=== PATIENT | female | born 1940 | race Caucasian/White ===

== ENCOUNTER → 2023-07-15 12:44 | Outpatient (REF) | payer OTHER, SELFPAY | LOC: WDC 12:44 | PROVIDERS: ATTENDING PHYSICIAN Obstetrics & Gynecology; FAMILY PHYSICIAN Family Medicine | DX: Z12.31 Encounter for screening mammogram for malignant neoplasm of breast (principal) | CPT/HCPCS: 77063; 77067 ==

== ENCOUNTER → 2023-07-27 14:52 | Outpatient (REF) | payer OTHER, SELFPAY | LOC: WDC 14:52 | PROVIDERS: ATTENDING PHYSICIAN Obstetrics & Gynecology; FAMILY PHYSICIAN Family Medicine | DX: R92.8 Other abnormal and inconclusive findings on diagnostic imaging of breast (principal) | CPT/HCPCS: 76642 ==

== ENCOUNTER → 2023-08-01 07:55 | Outpatient (REF) | payer OTHER, SELFPAY ==
--- NOTE | 2023-08-01 14:52 | OID.BR.INTR ---
YGD Breast Navigator - Initial
- -
Date of Contact: 08/01/23
Met with patient. Patient given written information on navigator services available at [facility]. Will follow up as needed per protocol.
== END ==
LOC: WDC 07:55
PROVIDERS: ATTENDING PHYSICIAN Obstetrics & Gynecology
DX: N63.21 Unspecified lump in the left breast, upper outer quadrant (principal)
CPT/HCPCS: 88305; 19083; 19084; 77065; 88341; 88342; 88360; A4648

== ENCOUNTER → 2023-08-18 11:31 | Outpatient (REF) | payer OTHER, SELFPAY | LOC: WDC 11:31 | PROVIDERS: ATTENDING PHYSICIAN Surgery | DX: C50.412 Malignant neoplasm of upper-outer quadrant of left female breast (principal) | CPT/HCPCS: 19285; 77065; A4648 ==

== ENCOUNTER 2023-08-19 05:58 | Day surgery (SDC) | payer OTHER, SELFPAY ==
[2023-08-10 09:05] VITALS: BMI 29.1
[2023-08-10 10:23] LABS: Hematocrit 41.2 % (37.0-47.0); Hemoglobin 13.5 g/dL (12.0-16.0); Mean Corp Hgb Conc. 32.8 g/dL (33.0-37.0); Mean Corpuscular Hgb 31.5 pg (27.0-31.0); Platelet Count 200 10^3/uL (130-400); Red Blood Cell Count 4.29 10^6/uL (4.20-5.40); Red Cell Dist. Width 13.2 % (11.5-14.5); White Blood Cell Count 6.9 10^3/uL (4.8-10.8)
--- NOTE | 2023-08-10 10:37 | PTCARENOTE ---
Preop EKG from 08/10/23 with non-specific T wave abnormality. See prior EKG scanned from 11/22/22 showing history fo non-specific ST/T changes.
[2023-08-10 11:19] LABS: ALT (SGPT) 19 U/L (0-35); AST (SGOT) 24 U/L (14-36); Albumin 4.1 g/dl (3.5-5.0); Alkaline Phosphatase 68 U/L (38-126); Blood Urea Nitrogen 22 mg/dl (7-17); Carbon Dioxide 27 mmol/L (22-30); Chloride 105 mmol/L (98-107); Estimated Creatinine Clearance 74 ml/min; Glucose 98 mg/dl (70-99); Potassium 4.7 mmol/L (3.5-5.1); Sodium 137 mmol/L (135-145); Total Bilirubin 0.4 mg/dl (0.2-1.3); Total Protein 7.1 g/dl (6.3-8.2); eGFR > 60.00
[2023-08-10 11:24] LABS: Prealbumin (Transthyretin) 27.5 mg/dl (17.6-36.0)
[2023-08-10 11:36] LABS: Vitamin D, 25-OH*** 35.3 ng/mL (30-80)
[2023-08-19 08:23] VITALS: BMI 29.1
[2023-08-19 08:25] VITALS: BP 123/61
[2023-08-19] MEDS: NORMOSOL-R 1000 IV (08:43)
[2023-08-19] MEDS: TYLENOL 1000 MG PO (08:43)
[2023-08-19 11:00] VITALS: BP 156/124
[2023-08-19 11:05] VITALS: BP 119/67
[2023-08-19 11:15] VITALS: BP 124/62
[2023-08-19 11:30] VITALS: BP 128/65
[2023-08-19 11:45] VITALS: BP 119/68
== END 2023-08-19 12:08 | disposition home or self-care (01) ==
LOC: SDS 05:58
PROVIDERS: ATTENDING PHYSICIAN Surgery; FAMILY PHYSICIAN Family Medicine
DX: C50.912 Malignant neoplasm of unspecified site of left female breast (principal); Z17.0 Estrogen receptor positive status [ER+]
CPT/HCPCS: 19301; 88305; 88307; 36415; 76098; 80053; 82306; 84134; 85027; 93005; A4648; L8000

== ENCOUNTER → 2024-07-20 12:49 | Outpatient (REF) | payer OTHER, SELFPAY | LOC: WDC 12:49 | PROVIDERS: ATTENDING PHYSICIAN Surgery; FAMILY PHYSICIAN Family Medicine | DX: Z12.31 Encounter for screening mammogram for malignant neoplasm of breast (principal) | CPT/HCPCS: 77063; 77067 ==

== ENCOUNTER 2025-03-20 23:50 | Inpatient (IN) | payer OTHER, SELFPAY ==
[2025-03-20 16:04] VITALS: BP 139/72
[2025-03-20 16:41] LABS: Hematocrit 39.4 % (37.0-47.0); Hemoglobin 13.3 g/dL (12.0-16.0); Mean Corp Hgb Conc. 33.8 g/dL (33.0-37.0); Mean Corpuscular Volume 90.0 fL (81.0-99.0); Nucleated Red Blood Cells % 0 %; Platelet Count 204 10^3/uL (130-400); Red Cell Dist. Width 12.7 % (11.5-14.5)
[2025-03-20 17:01] LABS: Troponin I 0.018 ng/ml
[2025-03-20 17:03] LABS: ALT (SGPT) 712 U/L (0-35); AST (SGOT) 882 U/L (14-36); Albumin 4.1 g/dl (3.5-5.0); Alkaline Phosphatase 188 U/L (38-126); Blood Urea Nitrogen 12 mg/dl (7-17); Calcium 8.7 mg/dl (8.4-10.2); Carbon Dioxide 22 mmol/L (22-30); Chloride 105 mmol/L (98-107); Glucose 130 mg/dl (70-99); Lipase 739 U/L (23-300); Potassium 4.1 mmol/L (3.5-5.1); Sodium 136 mmol/L (135-145); Total Protein 7.0 g/dl (6.3-8.2); eGFR > 60.00
--- NOTE | 2025-03-20 19:47 | ED.GENMED ---
History of Present Illness
General
Chief Complaint: Abdominal Pain
Time Seen by Provider: 03/20/25 19:24
Nursing documentation reviewed up to this point in time: agreed with
History of Present Illness
History of Present Illness:
84-year-old female presents the ER with her daughter for evaluation of continued upper abdominal discomfort radiating into her chest over the past 7 to 10 days. Patient had an ultrasound a few years ago which did reveal gallstones. She never had
any seizure with regards to this. She denies any fevers or chills. She has had persistent nausea with poor p.o. intake. Daughter reports that she had an episode of severe pain today which caused her to nearly faint and to fall to her knees. She
has been using Tylenol for discomfort without any improvement. Daughter states that they were advised to avoid ibuprofen or NSAIDs by a previous physician. Patient reports persistent discomfort at time of evaluation. Patient was scheduled to see
surgery as an outpatient after being evaluated by primary care physician on Tuesday-pain was more severe today prompting visit to the ER
Past History
Past History
ED Past Surgical History: Gynecological (Uterine polyp removed) and Orthopedic (Left carpal tunnel)
Social History
Tobacco: Former smoker
Alcohol: Daily (wine 2-9)
Personal:
Living: with family
Review of Systems
Review of Systems
Allergies reviewed?: Yes
Phy Exam
Physical Exam
Physical Exam:
Patient is awake, alert, appears in no acute distress, very hard of hearing, head is NCAT, PERRL, EOMI mucous membranes tacky, conjunctiva pink, sclera anicteric heart regular rate and rhythm without murmurs or ectopy, lungs are clear to
auscultation without wheezes rales or rhonchi, no JVD, abdomen is soft, obese, mild tenderness on palpation epigastrium without guarding or rebound,, extremities without edema, GCS is 15
Course
Orders/Labs/Results
Orders:
Orders
03/20/25 16:07
Electrocardiogram (*1) Urgent
Reason for Study: Abdominal Pain
EKG- Treatment ONCE
03/20/25 16:08
Electrocardiogram (*1) Urgent
Reason for Study: Chest Pain
03/20/25 16:25
Complete Blood Count/With Diff Urgent
Comprehensive Metabolic Panel Urgent
Lipase Urgent
Troponin I Urgent
03/20/25 19:25
US Abdomen Complete/Upper Urgent
Comment:
Reason For Exam: elevated LFts
03/20/25 19:46
0.9% Sodium Chloride 1000 ml [Nss] 1,000 ml IV BOLUS
Morphine Sulfate 4 mg IV NOW STA
Ondansetron Injectable [Zofran] 4 mg IV NOW STA
03/20/25 22:14
Consult Surgery [SURGICAL CONSULT] Urgent
Consulting Provider: Fernando Mendes
Was physician already notified: Yes
Reason for consult: biliary colic
03/20/25 22:19
Consult Gastroenterology [GASTROINTESTINAL CONSULT] Urgent
Consulting Provider: Will Dougherty
Was physician already notified: Yes
Reason for consult: choledocholithiasis
03/20/25 22:26
Zosyn 3.375 grams IVPB NOW Piperacillin/Tazo 3.375 Gram [Zosyn] 3.375 gram in 50 ml IV NOW
Abnormal Lab Results
03/20/25
16:25
Absolute Neuts (auto) 7.6 H 10^3/uL
(1.4-6.5)
Absolute Lymphs (auto) 0.7 L 10^3/uL
(1.2-3.4)
Neutrophils % 85.7 H %
(42.2-75.2)
Lymphocytes % 8.1 L %
(20.5-51.1)
Glucose 130 H mg/dl
(70-99)
Total Bilirubin 2.3 H mg/dl
(0.2-1.3)
AST 882 H* U/L
(14-36)
ALT 712 H* U/L
(0-35)
Alkaline Phosphatase 188 H U/L
(38-126)
Lipase 739 H U/L
(23-300)
03/20/25 16:25
03/20/25 16:25
Significant elevation in LFTs compared to prior values from 08/10/2023. Bilirubin is elevated at 2.3. Alk phos also elevated at 188. Troponin without evidence for acs
Vital Signs
Initial and Last Documented VS:
Initial Vital Signs
Temp Pulse Resp BP Pulse Ox
98 F 81 16 139/72 98
03/20/25 16:04 03/20/25 16:04 03/20/25 16:04 03/20/25 16:04 03/20/25 16:04
Last Documented Vital Signs
Temp Pulse Resp BP Pulse Ox
99.7 F 79 17 138/66 93
03/20/25 21:35 03/20/25 21:30 03/20/25 21:15 03/20/25 21:15 03/20/25 21:30
MDM/Problems Addressed
Differential Diagnosis Includes:
Differential diagnosis to consider but not limited to biliary colic, choledocholithiasis, pancreatitis along with other etiologies considered
Chronic conditions affecting care:
Advanced age, known gallstones, GERD, high cholesterol, hypertension
*Radiology
Radiology exam reviewed: radiology read reviewed (Gallstones with ductal dilatation concerning for choledocholithiasis)
*Pulse Oximetry
SaO2: 96
Oxygen Mode of Delivery: Room air
Patient hypoxic: no
*EKG
Interpreted by ED Provider?: Yes (I independently viewed and interpreted twelve-lead EKG showing normal sinus rhythm, rate 82, leftward axis, no ST elevation, this is a nonspecific EKG without evidence for acute ischemia, no change compared to prior
from 08/10/2023)
*[employer]ing Guard Interpretation
Rate: normal (I independently viewed and interpreted rhythm strip showing normal sinus rhythm, no ectopy)
*Critical Care Note
Total Time (30-74mins, 75-104mins- exclusive of procedures): Not Applicable
Update Note
Update Note:
I discussed with patient and daughter present at bedside clinical concern for choledocholithiasis given significant LFT elevation. Will obtain ultrasound to confirm diagnosis. I discussed with them need for admission for GI evaluation and likely
cholecystectomy. They agree with plan at current. IV morphine, Zofran and IV fluids are ordered.
2220: Once ultrasound result available, I reviewed this information with daughter. I also reached out to on-call surgeon, Dr. Mendes, and on-call agriculture research director, Dr. Dougherty, to apprise him of patient situation. They are in agreement with plan
for for hospitalist admission. IV antibiotics ordered. I reviewed full patient presentation with the hospitalist who accepts patient for admission for further treatment of acute choledocholithiasis with LFT elevation
ED Attending Note
-
Portions of this chart may have been created with voice recognition software.� Occasional wrong word or��sound alike� substitutions may have occurred due to the inherent limitations of voice recognition software.
Discharge Plan
Departure
Patient Disposition: Admit
Date of Disposition: 03/20/25
Time of Disposition: 22:25
Presentation/result/management discussed w/ accepting MD/DO: Hospitalist
Discharge Problem:
Choledocholithiasis, Elevated LFTs
Prescriptions:
No Action
amlodipine 5 mg Tablet
5 mg PO DAILY
ergocalciferol (vitamin D2) 1,250 mcg (50,000 unit) Capsule
1,250 mcg PO Q2W
red yeast rice 600 mg Tablet
600 mg PO DAILY
sertraline 100 mg Tablet
100 mg PO DAILY
calcium carbonate [Tums] 200 mg calcium (500 mg) Tablet,Chewable
200 mg PO BIDPRN PRN (Reason: gerd)
omeprazole 20 mg Tablet,Delayed Release (Dr/Ec)
20 mg PO DAILY
Referrals:
UNKNOWN - PT DOES,NOT KNOW [Family Provider]
Interventions
Interventions:
*General Assessment Last Done: 03/20/25 19:07
*Neglect/Abuse Screening Last Done: 03/20/25 16:04
*ED COVID-19 Vaccine History Last Done: 03/20/25 19:07
*ED Influenza Vaccine History Last Done: 03/20/25 19:07
[facility] Fall Risk Assessment Tool Last Done: 03/20/25 19:06
*Risk Screen - Suicide (C-SSRS) Last Done: 03/20/25 16:04
KQ-Hljjqr-Bzovcstcsu Assessment Last Done: 03/20/25 19:08
Discharge Date and Time
Print Language: GREEK
[2025-03-20] MEDS: NSS 1000 IV (19:58)
[2025-03-20] MEDS: MORPHINE SULFATE 4 MG IV (19:59)
[2025-03-20] MEDS: ZOFRAN 4 MG IV (19:59)
[2025-03-20 20:00] VITALS: BP 142/69
[2025-03-20 21:15] VITALS: BP 138/66
[2025-03-20 22:00] VITALS: BP 134/60
--- NOTE | 2025-03-20 22:24 | HPS.HSE ---
Family Physician
-
Family Physician: NOT KNOW UNKNOWN - PT DOES
Chief Complaint
-
abd pain nausea
History of Present Illness
84-year-old female from home with her daughter for complaints of upper abdominal discomfort radiating into her chest over the past 7 to 10 days.
She had an ultrasound a few years ago which did reveal gallstones. She reports nausea with decreased appetite. She reports her pain became worse today making her feel like she wanted to faint. She denies fevers, chills, chest pain, sob, cough,
diarrhea. She has been using Tylenol for discomfort without any improvement. She has PMH of Uterine polyp removed, former smoker , former alcohol abuse, Htn, Gerd, anxiety ,Left breast carcinoma
s/p lumpectomy 08/19/2023 Dr victoria, Chronic ambulatory dysfunction uses rollator at baseline
Medical History
Past Medical History
Past Medical History: Reports Other
Additional Past Medical History:
Former smoker
Former alcohol abuse stopped 2023
Htn
Gerd
Anxiety
Left breast carcinoma s/p lumectomy 08/19/2023 Dr victoria
Chronic ambulatory dysfunction uses rollator at baseline
[place]
Past Surgical History: Reports Other
Additional Past Surgical History:
Left breast carcinoma s/p lumectomy 08/19/2023 Dr victoria
Uterine polyp removed
Social History
Tobacco: Former Smoker
Alcohol: Former (used to drink 2-4 glasses wine day stopped 2023 )
Personal: Single
Living: With Family
Employment: Retired
Family History
Family History: Not pertinent
Allergies / Home Medications
Allergies reflects when Allergies were last updated in [employer].
Home Medications with original date entered in [employer]
Allergy/Medication List:
Allergies
Allergy/AdvReac Type Severity Reaction Status Date / Time
No Known Allergies Allergy Verified 03/20/25 16:04
Home Medications
amlodipine 5 mg tablet 5 mg PO DAILY 11/25/22
ergocalciferol (vitamin D2) 1,250 mcg (50,000 unit) capsule 1,250 mcg PO Q2W Supplement 11/25/22
red yeast rice 600 mg tablet 600 mg PO DAILY 11/25/22
sertraline 100 mg tablet 100 mg PO DAILY 08/12/23
calcium carbonate (Tums) 200 mg PO BIDPRN PRN gerd 03/20/25
omeprazole 20 mg tablet,delayed release 20 mg PO DAILY Gastrointestinal Issue 03/20/25
Review of Systems
-
History Source: Patient
A 12 point ROS was completed and negative except as noted: Yes
Constitutional: Denies Fever, Fatigue or Chills
EENT: Denies Sore Throat or Runny Nose
Respiratory: Denies Cough or Trouble Breathing
Cardiac: Denies Chest Pain, Diaphoresis, Palpitations or Syncope
Abdomen/GI: Reports Abdominal Pain and Nausea; Denies Vomiting, Diarrhea, Constipated, Bloody Stools or Black Stools
: Denies Dysuria, Frequency, Flank Pain, Incontinence or Difficulty Voiding
Musculoskeletal: Denies Joint Pain or Edema
Skin: Denies Itching or Rash
Neurological: Denies Dizzy, Headache or Weakness
Endocrine: Reports No Symptoms
Hematologic/Lymphatic: Reports No Symptoms
Psych: Reports Calm
Physical Exam
Vital Signs
Vital Signs
Temp Pulse Resp BP Pulse Ox
99.7 F 79 17 138/66 93
03/20/25 21:35 03/20/25 21:30 03/20/25 21:15 03/20/25 21:15 03/20/25 21:30
Physical Exam
General: No Fever or Chills
HEENT: NormoCephalic, Anicteric, Moist mucous membranes, PERRLA, Odem Conjunctivae and No Ptosis
Respiratory: Clear; No Wheezes, Rales or Rhonchi
Cardiac: S1/S2 and Regular Rhythm; No Murmur, Rub, Gallop or Peripheral Edema
Breast: Deferred by me
GI: Soft, Non Distended, Normal Bowel Sounds, Tender (epigastric and ruq ) and No Hepatosplenomegaly
Rectal: Deferred by Provider
Genito-urinary: Deferred by me
Musculoskeletal: No Clubbing, No Cyanosis and No Edema
Skin: Warm and Dry; No Rash
Neuro: AO x 3, No Motor Deficits and Other (council ); No Slurred Speech, Facial Droop, Tremors or Sedated
Psych: Calm
Laboratory Results
-
03/20/25 16:25
03/20/25 16:25
Laboratory Results
Total Bilirubin 2.3 mg/dl (0.2-1.3) H 03/20/25 16:25
AST 882 U/L (14-36) H* 03/20/25 16:25
ALT 712 U/L (0-35) H* 03/20/25 16:25
Alkaline Phosphatase 188 U/L (38-126) H 03/20/25 16:25
Troponin I 0.018 ng/ml 03/20/25 16:25
Lipase 739 U/L (23-300) H 03/20/25 16:25
Impression/Plan
-
Impression/Plan:
Admit to Med Surg
#Acute transaminitis with abd concern for CHoldeocholithiasis
Ast 882,Alt 712, alk 188, lipase 789, t bili 2.3
- consult Surgery- Dr izquierdo aware
-consult Gi -Dr webber aware
-Iv Nss 1 liter given in ER
- cont Iv Nss 80 cc/hr
-MRcp /mri abdomen
- Iv protonix
-Iv morphine
- Iv Zofran
- Iv Zosyn
- follow cbc , cmp , lipase
Abd ultrasound:
1. Cholelithiasis with mild gallbladder wall thickening. Reported negative Musa's sign, however the patient has been given prior pain medications. Findings are overall considered equivocal for acute cholecystitis.
2. The common bile duct measures 8mm which is borderline dilated. Consider correlation with lab values and possible MRCP for possible biliary obstruction.
3. The pancreas appears echogenic which may related to fatty atrophy or pancreatitis. Recommend correlation with lipase.
#Former alcohol abuse
- pt stopped drinking 2-4 glasses wine last year
#Left breast carcinoma s/p lumpectomy 08/19/2023 Dr victoria
#Htn
bp 138/66
- cont amlodipine
#Gerd
cont iv protonix
dvt proph
proph scd's
Dnr per pt
[2025-03-20] MEDS: ZOSYN 50 IV (22:35)
--- NOTE | 2025-03-20 22:36 | W.PN.UPDATE ---
Update Note
Progress Note Update
This note serves as an addendum to the H&P by wire spiral binder Vangie Kiser
HPI
84F HX HTN, Anxiety seenh at ER:
- bib daughter for evaluation of continued upper abdominal discomfort radiating into her chest over the past 7 to 10 days.
- known HX sono evidence of GS few years
- denies any fevers or chills.
- pw persistent nausea with poor p.o. intake
- Daughter reports that she had an episode of severe pain today which caused her to nearly faint and to fall to her knees.
- has been using Tylenol for discomfort without any improvement.
Patient was scheduled to see surgery as an outpatient after being evaluated by PCP on Tuesday
Relevant VS
Temp Pulse Resp BP Pulse Ox
99.7 F 79 17 138/66 93
03/20/25 21:35 03/20/25 21:30 03/20/25 21:15 03/20/25 21:15 03/20/25 21:30
PE
Gen: NAD , not toxic, obese
HEENT: very [place] , anicteric
Neck: supple , no JVD
Lungs: CTA
Cor:RRR S1 S2
Abdomen:�Obese, mild tenderness on palpation epigastrium without guarding or rebound,,
SALES MGR: AAO3 NFND
MS: No edema
Psych: Nl mood and affect
Relevant Data
03/20/25
16:25
WBC 8.8
Hgb 13.3
Plt Count 204
Creatinine 0.6
eGFR > 60.00
Glucose 130 H
Total Bilirubin 2.3 H
ALT 712 H*
Alkaline Phosphatase 188 H
Troponin I 0.018
Lipase 739 H
US Abdomen Complete/Upper: CLINICAL INDICATION: elevated LFts
- Cholelithiasis with mild GBWT
Reported negative Musa's sign, however the patient has been given prior pain medications.
Findings are overall considered equivocal for acute cholecystitis.
- The CBD measures 8mm which is borderline dilated.
Consider correlation with lab values and possible MRCP for possible biliary obstruction.
- The pancreas appears echogenic which may related to fatty atrophy or pancreatitis.
Recommend correlation with lipase.
NO PRIOR Last hospitalist admission:
ASSESSMENT & PLAN
Very hard of hearing
- Not wearing hearing AID
Abn. LFTs + mildly eleavted Lipase + NEG Sono Musa sign + Cholelithiasis with mild GBWT with bilairy colic
DDX: passage of Choledocholithiasis vs. equivocal for acute cholecystitis.
- s/p IV Morphine 3 hrs ago
- NPO and IVF
- Empiric IV Zosyn
- PRN Dilaudid analgesia + IV antiemetics
- MRI/MRCP in AM
- Trend LFTs and Lipase
- Consult GI and GS
pHTN
- c/w SMOKE TESTER Amlodipine
HX GERD on PO PPI
DVT Px: SCD
Full code
IP MS
[2025-03-21] VITALS (10 sets, daily range): BP systolic 113–150; BP diastolic 60–69
[2025-03-21] MEDS: NSS 1000 IV (01:15)
[2025-03-21 04:23] LABS: Hematocrit 35.2 % (37.0-47.0); Hemoglobin 11.9 g/dL (12.0-16.0); Mean Corp Hgb Conc. 33.8 g/dL (33.0-37.0); Mean Corpuscular Volume 91.4 fL (81.0-99.0); Nucleated Red Blood Cells % 0 %; Platelet Count 194 10^3/uL (130-400); Red Cell Dist. Width 13.1 % (11.5-14.5)
[2025-03-21 04:49] LABS: ALT (SGPT) 704 U/L (0-35); AST (SGOT) 574 U/L (14-36); Albumin 3.3 g/dl (3.5-5.0); Alkaline Phosphatase 164 U/L (38-126); Blood Urea Nitrogen 14 mg/dl (7-17); Calcium 8.3 mg/dl (8.4-10.2); Carbon Dioxide 24 mmol/L (22-30); Chloride 109 mmol/L (98-107); Estimated Creatinine Clearance 63 ml/min; Glucose 120 mg/dl (70-99); Potassium 3.8 mmol/L (3.5-5.1); Sodium 138 mmol/L (135-145); Total Protein 6.1 g/dl (6.3-8.2); eGFR > 60.00
[2025-03-21 05:02] LABS: Lipase > 4000 U/L (23-300)
--- NOTE | 2025-03-21 09:11 | CON.GS ---
Addendum entered and electronically signed by Fernando Mendes MD 03/21/25 11:58:
I was physically present and personally performed the alva portions of the surgical evaluation and/or procedure with the resident. I discussed the findings, reviewed the resident�s note, and confirmed the medical decision-making. I provided direct
supervision as required and agree with the assessment and plan as documented with the following additions/corrections:
HPI: 84-year-old female with known history of gallstones reporting approximately a 10-day history of the acute onset of intermittent substernal/epigastric abdominal pain with associated dry heaves and a single episode of vomiting. She was referred
for emergency department evaluation yesterday by her daughter due to the persistence of her symptoms. This a.m. they have resolved without any residual abdominal pain. No nausea or vomiting.
No past abdominal surgical history. PMH notable for GERD, hypertension, anxiety, previous history of breast cancer status post lobectomy, previous smoker and previous history of alcohol use -none active
NAD AAO x 3 pleasant and participatory for history taking evaluated in emergency department. Resting comfortably.
ABD: Soft, nondistended, no tenderness on palpation elicited. No rebound rigidity or guarding.
Ultrasound abdomen 03/20/2025. Images personally reviewed as well as radiologist report. Cholelithiasis. Possible mild wall thickening but no significant Dat cholecystic edema. Common bile duct 8 mm which is increased from previous ultrasound
imaging in 2022 when it was measured as 4 mm
Chemistry panel notable for hyperbilirubinemia with total bili of 3.7, elevated AST ALT and alkaline phosphatase as well as lipase greater than 4000.
Assessment/plan: 84-year-old female with probable gallstone mediated acute pancreatitis and possible choledocholithiasis; no clinical signs suggestive of acute calculous cholecystitis (cystic duct obstruction)
Reviewed with patient treatment pathway which typically consists of supportive care for acute pancreatitis and evaluation/treatment for potential choledocholithiasis as per GI recommendations (MRCP versus straight to EUS/ERCP)
Timing of cholecystectomy pending clinical course and clearance of bile duct
Given clinical stability cholecystectomy at index hospitalization would likely be offered
Will follow
Original Note:
Consultation
-
Date/Time Consultation Requested: 03/20/25 22:14
Date/Time Consultation Performed: 03/21/25 9:11
Requesting Provider: Cristina Melvin DO
Performing Provider: Fernando Mendes
Reason for Consultation: Choledocholithiasis
Medical History
-
Chief Complaint: Abdominal Pain
History of Present Illness:
This is an 84 y/o female with pmhx of GERD, essential hypertension, former smoking history and former alcohol abuse with known gallstones who presented to the ED on 03/20/2025 with abdominal pain that began on 03/11/2025. She states the pain at that
time began similar to symptoms of acid reflux, which she has had before. She took Tums like she usually does, but the pain persisted and radiated to bilaterally beneath her breasts, which she had never experienced before. It was accompanied by dry
heaving and one episode of vomiting. She did contact her PCP, who gave her a new medication which she only took one time due to it making her pain more severe. She is unable to tell me the name of this medication. She tried taking Tylenol which did
not improve her pain. Her pain persisted over the next few days until 03/20/2025 when it became unbearable and her daughter had her present to the ED. She has been free of fevers, chills, diarrhea, constipation. She has been free from vomiting since
03/11/2025.
In the ED she was given 4mg of Morphine, and was started on PRN dilaudid for pain. Her labs at that time were significant for normal WBC at 8.8, elevated total bilirubin at 2.3, elevated AST at 882, elevated ALT at 712, elevated all phos at 188, and
elevated lipase at 739. Ultrasound of the abdomen showed cholelithiasis with mild gallbladder wall thickening, with common bile duct dilation of 8mm, and pancreatic echogenicity.
At the time of my interview, she is totally free of pain and nausea. She has never had any abdominal surgeries in the past.
Past Medical History
Past Medical History: Cancer (Left Breast carcinoma s/p lumpectomy), GERD, HTN and Other (Anxiety)
Past Surgical History: Other (Left Breast lumpectomy 08/19/2023)
Social History
Tobacco: Former Smoker
Alcohol: Former (2-4 wine glasses/day, stopped in 2023)
Drug: None
Personal: Single
Living: With Family (Daughter)
Employment: Retired
Family History
Family History: Reviewed & Not Pertinent
Allergies / Home Medications
Allergy/AdvReac Type Severity Reaction Status Date / Time
No Known Allergies Allergy Verified 03/20/25 16:04
�Medication �Instructions �Recorded �Confirmed �Type
amlodipine 5 mg tablet 5 mg PO DAILY 11/25/22 03/20/25 History
ergocalciferol (vitamin D2) 1,250 1,250 mcg PO Q2W Supplement 11/25/22 03/20/25 History
mcg (50,000 unit) capsule
red yeast rice 600 mg tablet 600 mg PO DAILY 11/25/22 03/20/25 History
sertraline 100 mg tablet 100 mg PO DAILY 08/12/23 03/20/25 History
calcium carbonate (Tums) 200 mg PO BIDPRN PRN gerd 03/20/25 03/20/25 History
omeprazole 20 mg tablet,delayed 20 mg PO DAILY Gastrointestinal 03/20/25 03/20/25 History
release Issue
Review of Systems
-
History Source: Patient
Constitutional: No Symptoms
Cardiac: No Symptoms
Abdomen/GI: Abdominal Pain (From prior to admission, none current)
Skin: No Symptoms
Neurological: No Symptoms
A 10 point review of systems was completed, and was negative except as per HPI.
Physical Exam
Vital Signs
Temp Pulse Resp BP Pulse Ox
98.1 F 71 16 115/69 97
03/21/25 08:03 03/21/25 08:01 03/21/25 08:03 03/21/25 08:01 03/21/25 08:03
03/20/25 03/21/25 03/22/25
06:59 06:59 06:59
Actual Weight 81.647 kg
Body Mass Index (BMI) 30.0
Lab Results
03/21/25 04:08
03/21/25 04:08
WBC 8.3 10^3/uL (4.8-10.8) 03/21/25 04:08
Hgb 11.9 g/dL (12.0-16.0) L 03/21/25 04:08
Hct 35.2 % (37.0-47.0) L 03/21/25 04:08
Plt Count 194 10^3/uL (130-400) 03/21/25 04:08
Abs Immat Gran (auto) 0.0 10^3/uL (0-0.05) 03/21/25 04:08
Neutrophils % 79.1 % (42.2-75.2) H 03/21/25 04:08
Physical Exam
General: Well Developed, Well Nourished, No Apparent Distress and Comfortable
HEENT: Normocephalic
Respiratory: Clear
Cardiac: S1/S2 and Regular Rhythm
GI: Soft, Non Tender and Non Distended
Skin: Warm and Dry
Neuro: Awake, Alert and Oriented
Psych: Calm
Assessment / Plan
-
Assessment:
This is an 84 y/o female with pmhx of GERD, essential hypertension, former smoking history and former alcohol use with known gallstones who presented to the ED on 03/20/2025 with abdominal pain that began on 03/11/2025 with laboratory and image
studies suggestive of choledocholithiasis.
Plan:
Choledocholithiasis
Patient with abdominal pain, elevated LFTs + Lipase on admission
Ultrasound Abdomen 03/20: Cholelithiasis with mild gallbladder wall thickening. Reported negative Musa's sign, however the patient has been given prior pain medications... The common bile duct measures 8mm which is borderline dilated. The
pancreas appears echogenic which may related to fatty atrophy or pancreatitis.
Pending MRCP ordered by admitting team
Overall clinical picture suggestive of choledocholithiasis without acute cholangitis
Following resolution of Choledocholithiasis can further discuss need for cholecystectomy to prevent future gallstone-mediated incidents. Will need to monitor her labs for resolution of pancreatitis to establish appropriate schedule for surgery
Continue to monitor for fevers, chills, elevated WBC
Continue NPO with IV fluids
Continue PRN Dilaudid for pain, PRN antiemetics
Continue to trend LFTs and Lipase
Thank you for the consult. Surgery will continue to follow.
[2025-03-21] MEDS: NORVASC 5 MG PO (09:31)
[2025-03-21] MEDS: ZOLOFT 100 MG PO (09:31)
[2025-03-21] MEDS: NSS (PRESERVATIVE FREE) 10 ML IV (09:32)
[2025-03-21] MEDS: PROTONIX IV 40 MG IV (09:32)
--- NOTE | 2025-03-21 11:22 | CON.GI ---
Consultation
-
Date/Time Consultation Requested: 03/20/25 10:18pm
Date/Time Consultation Performed: 03/21/25 11:22am
Requesting Provider: Cristina Melvin
Performing Provider: Will Dougherty
Reason for Consultation: Gallstones, abd pain
Medical History
Chief Complaint / HPI
Chief Complaint: gallstones abd pain
History of Present Illness:
84yo female presents with epigastric pain over last week. It occurred randomly, had some dry heaves. She reports history of gallstones in the past. Prior to this episode denies any specific GI complaints.
Past Medical History
Past Medical History: Other (L breast cancer)
Past Surgical History: Other (uterine polyp, L carpal tunnel)
Social History
Tobacco: Former Smoker
Alcohol: Daily
Family History
Family History: Reviewed & Not Pertinent
Allergies / Home Medications
Allergy/AdvReac Type Severity Reaction Status Date / Time
No Known Allergies Allergy Verified 03/20/25 16:04
�Medication �Instructions �Recorded
amlodipine 5 mg tablet 5 mg PO DAILY 11/25/22
ergocalciferol (vitamin D2) 1,250 1,250 mcg PO Q2W Supplement 11/25/22
mcg (50,000 unit) capsule
red yeast rice 600 mg tablet 600 mg PO DAILY 11/25/22
sertraline 100 mg tablet 100 mg PO DAILY 08/12/23
calcium carbonate (Tums) 200 mg PO BIDPRN PRN gerd 03/20/25
omeprazole 20 mg tablet,delayed 20 mg PO DAILY Gastrointestinal 03/20/25
release Issue
Review of Systems
-
All other systems: A 12 pt ROS was Negative except as stated above in HPI
Vital Signs
Temp Pulse Resp BP Pulse Ox
98.1 F 71 16 119/50 97
03/21/25 08:03 03/21/25 09:31 03/21/25 08:03 03/21/25 09:31 03/21/25 08:03
Physical Exam
Exam
General: No Apparent Distress
HEENT: Normocephalic and Atraumatic
Respiratory: Non Labored Respirations
GI: Soft, Non Distended and Tender (epigastric tenderness)
Results
WBC 8.3 10^3/uL (4.8-10.8) 03/21/25 04:08
Hgb 11.9 g/dL (12.0-16.0) L 03/21/25 04:08
Hct 35.2 % (37.0-47.0) L 03/21/25 04:08
MCV 91.4 fL (81.0-99.0) 03/21/25 04:08
Plt Count 194 10^3/uL (130-400) 03/21/25 04:08
Absolute Neuts (auto) 6.5 10^3/uL (1.4-6.5) 03/21/25 04:08
Sodium 138 mmol/L (135-145) 03/21/25 04:08
Potassium 3.8 mmol/L (3.5-5.1) 03/21/25 04:08
Chloride 109 mmol/L (98-107) H 03/21/25 04:08
Carbon Dioxide 24 mmol/L (22-30) 03/21/25 04:08
BUN 14 mg/dl (7-17) 03/21/25 04:08
Creatinine 0.7 mg/dL (0.6-1.0) 03/21/25 04:08
Calcium 8.3 mg/dl (8.4-10.2) L 03/21/25 04:08
Total Bilirubin 3.7 mg/dl (0.2-1.3) H D 03/21/25 04:08
AST 574 U/L (14-36) H* 03/21/25 04:08
ALT 704 U/L (0-35) H* 03/21/25 04:08
Alkaline Phosphatase 164 U/L (38-126) H 03/21/25 04:08
Lipase > 4000 U/L (23-300) H* 03/21/25 04:08
Diagnostic Image Results:
Prior GI Procedures:
EGD:
Colonoscopy:
Assessment / Plan
-
Summary: 84yo female presents with epigastric pain over last week. AST 882, ALT 712, TB 2.3, lipase 739--->4000. US cholelithiasis with mild GBWT. CBD 8mm, borderline dilated
Impression:
Gallstone pancreatitis
Epigastric abd pain
Recommendations:
NPO
LR @200cc/hr
MRI/MRCP r/o CBD stone
Pain control
Trend LFTs
-
-
Thank you for consultation and allowing me to participate in the patient's care. Please call the power tong operator GI physician during the after hours with any questions or concerns.
--- NOTE | 2025-03-21 14:20 | W.PN.HOSP.TC ---
Today's Communication/Plan
-
Assessment / Plan
Assessment / Plan
Acute gallstone pancreatitis
Lactated Ringer's at 200 cc to initiate
Await MRCP
Analgesics
Follow LFTs
Antiemetics
N.p.o.
Without evidence of cholangitis
Surgery consulted and following
GERD
PPI
Hypertension
Continue amlodipine
Anticipated Discharge: > 48 hours
Subjective/Interval History
-
Date of Service: March 21, 2025
Seen and examined. No new complaints. No acute overnight event
Objective Data
-
Labs:
Laboratory Results
03/21/25
04:08
WBC 8.3
Hgb 11.9 L
Hct 35.2 L
Plt Count 194
Sodium 138
Potassium 3.8
Chloride 109 H
Carbon Dioxide 24
BUN 14
Creatinine 0.7
Glucose 120 H
Calcium 8.3 L
Total Bilirubin 3.7 H D
AST 574 H*
ALT 704 H*
Alkaline Phosphatase 164 H
Vital Signs:
Vital Signs
Temp Pulse Resp BP Pulse Ox
97.6 F 75 18 113/60 93
03/21/25 11:54 03/21/25 11:54 03/21/25 11:54 03/21/25 11:54 03/21/25 11:54
I&O
03/20/25 03/21/25 03/22/25
06:59 06:59 06:59
Intake Total 360 / 360
Output Total 200 / 200
Balance 160 / 160
Physical Exam
-
General: Well Developed, Well Nourished and No Apparent Distress
HEENT: Normocephalic and Atraumatic
Respiratory: Clear to Auscultation
Cardiac: Regular Rhythm and S1/S2
GI: Soft, Nondistended, Normal Bowel Sounds and Tender (Epigastric)
Genito-urinary: No Costovertebral Tender and Clear Urine
Musculoskeletal: No Clubbing
Skin: Warm and Dry
Neuro: Awake and AO x 3
Psych: Calm
[2025-03-21] MEDS: LR 1000 IV ×2 (14:35→22:30)
--- NOTE | 2025-03-21 16:02 | CM ---
bowling alley manager reviewed patient's chart and met with patient and patient lives with daughter in an apartment, is independent with adl's and uses a rollator with ambulation, no steps to enter home. Everything is on one floor per patient.
PCP: Dr Ruiz
Pharmacy: [facility] in [place]
Plan; Home with daughter when stable.
--- NOTE | 2025-03-21 22:41 | PTCARENOTE ---
Pt [facility] @ 2241. Ambulated to bed from wheelchair x1 rolling walker. AAOx3, vss. Frustrated with stay. Pt NPO d/t MRCP tomorrow. IVF initiated per order. Bedalarm in place d/t history of chronic ambulatory dysfunction. c/o 0/10 pain.
very ATKA. Pt oriented to room, call watts within reach, bed locked and in lowest position. Plan of care reviewed with pt. All questions answered. Care ongoing.
[2025-03-22] VITALS (11 sets, daily range): BP systolic 116–148; BP diastolic 53–76
[2025-03-22] MEDS: LR 1000 IV ×2 (03:30→21:22)
--- NOTE | 2025-03-22 06:03 | W.PN.GI.CBS2 ---
Today's Communication / Plan
-
Recent MRI/MRCP negative for choledocholithiasis, appreciate general surgery recs regarding timing of lap parminder given biliary pancreatitis. Rest of care as outlined below. GI will sign-off, please recontact with any questions/concerns.
Assessment / Plan
-
Summary: 84yo female presents with epigastric pain over last week. AST 882, ALT 712, TB 2.3, lipase 739--->4000. US cholelithiasis with mild GBWT. CBD 8mm, borderline dilated
#Gallstone pancreatitis
#Epigastric abd pain
Prior Abdominal US 03/20/25: Cholelithiasis with mild gallbladder wall thickening. Reported negative Musa's sign, however the patient has been given prior pain medications. Findings are overall considered equivocal for acute cholecystitis. The
common bile duct measures 8mm which is borderline dilated.
S/p recent MRI/MRCP 03/22/25: Cholelithiasis and mild diffuse gallbladder wall thickening, equivocal for acute cholecystitis in the appropriate clinical context. No biliary dilatation or choledocholithiasis.
Recommendations:
- Keep NPO pending surgical eval regarding plans for surgery. Okay to have CLD and ADAT from GI standpoint
- Continue IV LR for total of 24 hrs
- Trend LFTs q daily, currently trending down
- Recent MRI/MRCP (-) for choledocholithiasis
- Would benefit from lap parminder, appreciate surgical recs regarding timing
- Continue pain control and anti-emetics PRN
- Rest of care as per primary team
Discussed with primary internal medicine team this AM. GI will s/off, please recontact with questions/concerns.
Subjective
Subjective
Date of Service: March 22, 2025
- S/p MRI/MRCP performed overnight, pending read
- Repeat LFTs pending this AM
Resting comfortably, notes significant improvement in regards to her previous abdominal pain/discomfort. No other nausea/vomiting, hoping to have more liquids. Otherwise, no other fevers/chills.
Objective
Data Reviewed
Laboratory Data:
Laboratory Results
Total Bilirubin 3.7 mg/dl (0.2-1.3) H D 03/21/25 04:08
AST 574 U/L (14-36) H* 03/21/25 04:08
ALT 704 U/L (0-35) H* 03/21/25 04:08
Alkaline Phosphatase 164 U/L (38-126) H 03/21/25 04:08
Lipase > 4000 U/L (23-300) H* 03/21/25 04:08
Vital Signs and I&O:
Vital Signs
Temp Pulse Resp BP Pulse Ox
97.7 F 82 18 138/68 94
03/21/25 23:07 03/21/25 23:07 03/21/25 23:07 03/21/25 23:07 03/21/25 23:07
I&O
03/20/25 03/21/25 03/22/25
06:59 06:59 06:59
Intake Total 760 / 760
Output Total 200 / 200
Balance 560 / 560
Physical Exam
Physical Exam
HEENT: Anicteric and Moist mucous membranes
Pulmonary: Other (Normal WOB on room air)
GI: Soft, Non Distended and Non Tender (Minimal epigastric tenderness to palpation)
Extremities: No Edema
Neuro: Non Focal
--- NOTE | 2025-03-22 07:38 | W.PN.GS2 ---
Addendum entered and electronically signed by Kwesi Eaton MD 03/22/25 10:15:
Daughter updated by phone
Addendum entered and electronically signed by Kwesi Eaton MD 03/22/25 10:09:
I was physically present and personally performed the alva portions of the surgical evaluation and/or procedure with the resident. I discussed the findings, reviewed the resident�s note, and confirmed the medical decision-making. I provided direct
supervision as required and agree with the assessment and plan as documented with the following additions/corrections:
Clinically improved, MRCP negative for choledocho, no ttp to abd. OCTOR for rCCY with cholang
Original Note:
Today's Communication / Plan
-
Add on to OR schedule for laparoscopic cholecystectomy today
Assessment / Plan
-
Assessment:
This is an 84 y/o female with pmhx of GERD, essential hypertension, former smoking history and former alcohol use with known gallstones who presented to the ED on 03/20/2025 with abdominal pain that began on 03/11/2025 with laboratory and image
studies suggestive of gallstone pancreatitis with possible choledocholithiasis with no current findings of acute cholecystitis or acute cholangitis.
Plan:
Acute Cholecystitis
Gallstone pancreatitis
Patient with abdominal pain, elevated LFTs + Lipase on admission
Ultrasound Abdomen 03/20: Cholelithiasis with mild gallbladder wall thickening. Reported negative Musa's sign, however the patient has been given prior pain medications... The common bile duct measures 8mm which is borderline dilated. The
pancreas appears echogenic which may related to fatty atrophy or pancreatitis.
Compared to most recent abdominal US in 2022, common bile duct has dilated from 4mm to 8mm.
MRI Abdomen 03/22: Gallbladder contains gallstones with mild diffuse wall thickening measuring up to 4 mm. A prominent 1.7 cm gallstone is located in the region of the gallbladder neck.
Overall clinical picture suggestive of acute cholecystitis with gallstone pancreatitis
At this point, would recommend laparoscopic cholecystectomy for definitive treatment. Discussed surgery with her today including risks and benefits. Reviewed average recovery course post operatively. She is agreeable to surgical interventions
during this hospitalization. Plan to add her onto the OR schedule for cholecystectomy today.
Continue NPO with IV fluids until surgery, resume diet after surgery
Continue PRN Dilaudid for pain, PRN antiemetics
Continue to trend LFTs and Lipase
Thank you for the consult. Surgery will continue to follow.
Subjective Data
-
Date of Service: March 22, 2025
Patient is doing well today. She continues to be free from abdominal pain, nausea, vomiting. She reports being well rested and her only concern is that her mouth/lips feel dry. No acute overnight events.
Objective Data
-
Intake and Output
03/21/25 03/22/25 03/23/25
06:59 06:59 06:59
Intake Total 3160 / 3160
Output Total 200 / 200
Balance 2960 / 2960
Intake:
Oral fluids 0 / 0
IV fluids (Total) 3160 / 3160
Output:
Urine, Voided 200 / 200
Other:
How many times incontinent 1
SATURATED amount urine
Number of approximated MODERATE 1
amounts of urine
Vital Signs
Temp Pulse Resp BP Pulse Ox
97.7 F 82 18 138/68 94
03/21/25 23:07 03/21/25 23:07 03/21/25 23:07 03/21/25 23:07 03/21/25 23:07
Calcium 8.3 mg/dl (8.4-10.2) L 03/21/25 04:08
Total Bilirubin 3.7 mg/dl (0.2-1.3) H D 03/21/25 04:08
AST 574 U/L (14-36) H* 03/21/25 04:08
ALT 704 U/L (0-35) H* 03/21/25 04:08
Alkaline Phosphatase 164 U/L (38-126) H 03/21/25 04:08
Total Protein 6.1 g/dl (6.3-8.2) L 03/21/25 04:08
Albumin 3.3 g/dl (3.5-5.0) L 03/21/25 04:08
Physical Exam
-
General: Alert, oriented, calm and comfortable
Cardiac: Heart regular rate, rhythm, normal S1 S2
Lungs: Clear to auscultation
GI: No abdominal tenderness on palpation of abdomen
Patient has a landeros catheter: No
Patient has a central line: No
--- NOTE | 2025-03-22 08:41 | CM ---
Chart reviewed and patient to return to home with daughter when stable, will follow patient for any home care needs.
Plan; Home with daughter when stable
[2025-03-22 08:47] LABS: Hematocrit 36.6 % (37.0-47.0); Hemoglobin 11.8 g/dL (12.0-16.0); Mean Corp Hgb Conc. 32.2 g/dL (33.0-37.0); Mean Corpuscular Volume 93.1 fL (81.0-99.0); Nucleated Red Blood Cells % 0 %; Platelet Count 184 10^3/uL (130-400); Red Cell Dist. Width 13.2 % (11.5-14.5)
[2025-03-22] MEDS: PROTONIX IV 40 MG IV (08:52)
[2025-03-22] MEDS: NORVASC 5 MG PO (08:52)
[2025-03-22] MEDS: ZOLOFT 100 MG PO (08:52)
[2025-03-22] MEDS: NSS (PRESERVATIVE FREE) 10 ML IV (08:52)
[2025-03-22 09:28] LABS: ALT (SGPT) 488 U/L (0-35); AST (SGOT) 211 U/L (14-36); Albumin 3.4 g/dl (3.5-5.0); Alkaline Phosphatase 215 U/L (38-126); Blood Urea Nitrogen 12 mg/dl (7-17); Calcium 8.6 mg/dl (8.4-10.2); Carbon Dioxide 20 mmol/L (22-30); Chloride 109 mmol/L (98-107); Estimated Creatinine Clearance 74 ml/min; Glucose 64 mg/dl (70-99); Lipase 531 U/L (23-300); Potassium 3.9 mmol/L (3.5-5.1); Sodium 139 mmol/L (135-145); Total Protein 6.1 g/dl (6.3-8.2); eGFR > 60.00
[2025-03-22] MEDS: LR IV ×2 (11:02→21:22)
--- NOTE | 2025-03-22 12:00 | PN.CDI ---
CDI
- -
CDI:
Physician Documentation Request
Admit Date: 03/20/25 23:50
Dear Doctor Bryant,
Please review the following and provide your response in the progress notes.
Clinical Indicators:
Laboratory Tests
03/20/25 03/21/25 03/22/25
16: 04:08 08:23
Total Bilirubin 2.3 H 3.7 H D 1.1 D
Based on the above and your clinical assessment, please clarify in the progress notes, the appropriate diagnosis, if significant, that supports the above abnormalities and additional evaluation, monitoring and/or treatment rendered:
Elevated total bilirubin, POA, now resolved
Abnormal lab value, clinically insignificant
Other(please specify)
Use of terms such as suspected, likely, concern for, or probable (associated with a specific diagnosis that is being evaluated, monitored, or treated as if it exists) are acceptable and can be coded in the inpatient setting, when documented at the
time of discharge.
Thank you,
Cortney Choudhary RN BSN CCDS
CDI Specialist
Please contact via tiger text
Please use your independent medical judgment in providing your response.
--- NOTE | 2025-03-22 15:26 | W.PN.HOSP.TC ---
Addendum entered and electronically signed by Rodney Hurtado MD 03/22/25 15:50:
hyperbili secondary to gall stone
Original Note:
Today's Communication/Plan
-
Assessment / Plan
Assessment / Plan
Acute gallstone pancreatitis
Lactated Ringer's at 200 cc to initiate
MRCP without evidence of choledocholithiasis
Analgesics
Follow LFTs
Antiemetics
N.p.o.
Without evidence of cholangitis
Surgery, cholecystectomy 03/22/2025
GERD
PPI
Hypertension
Continue amlodipine
Anticipated Discharge: 24 - 48 hours
Subjective/Interval History
-
Date of Service: March 22, 2025
Seen and examined. No new complaints. No acute overnight events.
Wants a chocolate milkshake. Daughter at bedside
Objective Data
-
Labs:
Laboratory Results
03/22/25
08:23
WBC 8.5
Hgb 11.8 L
Hct 36.6 L
Plt Count 184
Sodium 139
Potassium 3.9
Chloride 109 H
Carbon Dioxide 20 L
BUN 12
Creatinine 0.5 L
Glucose 64 L
Calcium 8.6
Total Bilirubin 1.1 D
AST 211 H
ALT 488 H
Alkaline Phosphatase 215 H
Vital Signs:
Vital Signs
Temp Pulse Resp BP Pulse Ox
97.9 F 91 14 148/76 95
03/22/25 07:10 03/22/25 07:10 03/22/25 07:10 03/22/25 07:10 03/22/25 07:10
I&O
03/21/25 03/22/25 03/23/25
06:59 06:59 06:59
Intake Total 3160 / 3160
Output Total 200 / 200
Balance 2960 / 2960
--- NOTE | 2025-03-22 19:01 | W.IMMPOSTOP ---
Surgical Immed Post Op Note
-
Primary Surgeon: Uma
Assisting: Lawrence PARTIDA
Pre-op Diagnosis: Acute calculous cholecystitis
Post-op Diagnosis: Same
Procedure Performed: Robotic cholecystectomy
Anesthesia Type: GETA
Specimen / Cultures: Gallbladdder
Estimated Blood Loss: 35cc - liver bed oozing and cystic artery
Complications: None immediate
Operative Findings: Distended gallbladder with hydropic bile and severely thickened wall with wall edema, cystic artery bleeding controlled with bipolar, minimal bile spillage without stones during liver bed dissection
--- NOTE | 2025-03-22 19:03 | OR.RPT ---
Operative Report
Operative Report
Primary Surgeon: Uma
Assisting: Lawernce PARTIDA
Pre-op Diagnosis: Acute calculous cholecystitis
Post-op Diagnosis: Same
Procedure Performed: Robotic cholecystectomy
Anesthesia Type: GETA
Specimen / Cultures: Gallbladdder
Estimated Blood Loss: 35cc - liver bed oozing and cystic artery
Complications: None immediate
Operative Findings: Distended gallbladder with hydropic bile and severely thickened wall with wall edema, cystic artery bleeding controlled with bipolar, minimal bile spillage without stones during liver bed dissection
DOS: 03/22/25
Indications: This 84F developed right upper quadrant/epigastric pain and on workup was found to have cholelithiasis, with elevated liver enzymes and normal sized ducts. Magnetic resonance imaging was negative for choledocholithiasis. Laparoscopic
cholecystectomy with robotic assist and with cholangiogram was planned.
Description of procedure: The patient was placed on the operating table in the supine position. General anesthesia was induced. A time-out was completed verifying correct patient, procedure, site, positioning, and special equipment prior to
beginning this procedure. An orogastric tube was placed. The abdomen was prepped and draped in the usual sterile fashion. A stab incision was made in left upper quadrant and the Veress needle was inserted. Proper position was confirmed by aspiration
and saline meniscus test. The abdomen was insufflated with carbon dioxide to a pressure of 12 mmHg. The patient tolerated insufflation well.
An 8mm optical trocar was then inserted in the left upper quadrant. The laparoscope was inserted and the abdomen inspected. Additional 8mm trocars were then inserted in the following locations: above the umbilicus, right mid clavicular line at the
level of the umbilicus and 6cm lateral to this on the right. The abdomen was inspected and no abnormalities were found. The table was placed in the reverse Trendelenburg position with the right side up. Dense inflamed omental adhesions to the
gallbladder fundus were taken down carefully. The dome of the gallbladder was grasped with an atraumatic grasper and retracted over the dome of the liver. The infundibulum was grasped with an atraumatic grasper and retracted toward the right lower
quadrant. The infundibulum showed signs of wall thickening and edema. This maneuver exposed Calot�s triangle. The cystic duct and cystic artery were dissected out until the only two structures entering the gallbladder were these two structures. The
common duct was protected.
The cystic artery was controlled with bipolar and divided. The cystic duct was doubly clipped and divided. The gallbladder was dissected free from the liver bed. The posterior plane was severely fibrotic. Hemostasis was assured and the gallbladder
and contained stones were removed using an endoscopic retrieval bag placed through the umbilical port. The gallbladder was passed off the table as a specimen. There was no evidence of bleeding from the gallbladder fossa or cystic artery or leakage
of the bile from the cystic duct stump. The fossa was irrigated with copious sterile saline until effluent ran clear. The umbilical trocar site was closed at the fascial level laparoscopically with 2-0 PDS. Secondary trocars were removed under
direct vision and noted to be hemostatic. The laparoscope was withdrawn and the umbilical trocar removed. The abdomen was allowed to collapse. The skin was closed with subcuticular sutures of 4-0 monocryl and topical skin adhesive. The orogastric
tube was removed.
The patient tolerated the procedure well and was taken to the postanesthesia care unit in stable condition.
--- NOTE | 2025-03-22 20:46 | PTCARENOTE ---
pt arrived back to [facility] from PACU. 5 lap sites CDI with surgical glue. pt AAOx3 but drowsy. Family at bedside. Assessment on going.
[2025-03-23 03:16] VITALS: BP 115/59
[2025-03-23 07:17] VITALS: BP 125/65
[2025-03-23 07:27] LABS: Hematocrit 35.3 % (37.0-47.0); Hemoglobin 11.6 g/dL (12.0-16.0); Mean Corp Hgb Conc. 32.9 g/dL (33.0-37.0); Mean Corpuscular Volume 94.1 fL (81.0-99.0); Nucleated Red Blood Cells % 0 %; Platelet Count 206 10^3/uL (130-400); Red Cell Dist. Width 13.1 % (11.5-14.5)
[2025-03-23 07:45] LABS: ALT (SGPT) 340 U/L (0-35); AST (SGOT) 125 U/L (14-36); Albumin 3.3 g/dl (3.5-5.0); Alkaline Phosphatase 183 U/L (38-126); Blood Urea Nitrogen 11 mg/dl (7-17); Calcium 8.4 mg/dl (8.4-10.2); Carbon Dioxide 16 mmol/L (22-30); Chloride 109 mmol/L (98-107); Estimated Creatinine Clearance 74 ml/min; Glucose 99 mg/dl (70-99); Potassium 4.4 mmol/L (3.5-5.1); Sodium 137 mmol/L (135-145); Total Protein 6.0 g/dl (6.3-8.2); eGFR > 60.00
--- NOTE | 2025-03-23 08:56 | W.PN.GS2 ---
Today's Communication / Plan
-
regular diet
wean off o2
Assessment / Plan
-
84 yo female presenting with gallstone pancreatitis with ACC. LFT's/Lipase elevated on admission
03/22 MRCP without choledocholithiasis, suspected passage of stone and improvement in LFT's
POD#1 RAL cholecystectomy
AFVSS, on O2 post op
No leukocytosis. Bilirubin normalized, mild transaminitis persists but trending down
Tolerating diet
Minimal post op discomfort
Plan:
Wean off o2, IS while awake
OOB/Ambulate
Continue regular diet
Analgesics prn
d/c IVF
Ok for d/c from surgical standpoint once oxygen weaned off
Subjective Data
-
Date of Service: March 23, 2025
Pt seen and examined at bedside with Dr. Mendes. Denies n/v. Tolerating diet. Denies pain. Feels quite well.
Objective Data
-
Intake and Output
03/22/25 03/23/25 03/24/25
06:59 06:59 06:59
Intake Total 3160 / 3160 1700 / 1700
Output Total 200 / 200
Balance 2960 / 2960 1700 / 1700
Intake:
Oral fluids 0 / 0
IV fluids (Total) 3160 / 3160 1700 / 1700
Normosol 100 / 100
Output:
Urine, Voided 200 / 200
Other:
How many times incontinent 1 2
SATURATED amount urine
Number of approximated MODERATE 1 1
amounts of urine
Vital Signs
Temp Pulse Resp BP Pulse Ox
97.8 F 86 16 125/65 96
03/23/25 07:17 03/23/25 07:17 03/23/25 07:17 03/23/25 07:17 03/23/25 07:17
Lab Results
03/23/25 05:45
03/23/25 05:45
Calcium 8.4 mg/dl (8.4-10.2) 03/23/25 05:45
Total Bilirubin 0.7 mg/dl (0.2-1.3) 03/23/25 05:45
AST 125 U/L (14-36) H 03/23/25 05:45
ALT 340 U/L (0-35) H 03/23/25 05:45
Alkaline Phosphatase 183 U/L (38-126) H 03/23/25 05:45
Total Protein 6.0 g/dl (6.3-8.2) L 03/23/25 05:45
Albumin 3.3 g/dl (3.5-5.0) L 03/23/25 05:45
Physical Exam
-
NAD
ABD soft, nt, nd
Incsions with intact glue, no erythema
[2025-03-23] MEDS: ZOLOFT 100 MG PO (09:28)
[2025-03-23] MEDS: NORVASC 5 MG PO (09:28)
[2025-03-23] MEDS: NSS (PRESERVATIVE FREE) 10 ML IV (09:28)
[2025-03-23] MEDS: PROTONIX IV 40 MG IV (09:29)
[2025-03-23 11:22] VITALS: BP 138/60
--- NOTE | 2025-03-23 12:16 | CM ---
Addendum entered by Heidy Bird 03/23/25 12:20:
IMM benefit explained; patient signed form @ 1220; patient timed the form 1240
Original Note:
Met with patient and family at bedside
Home Health PT offered; patient refused
Son will transport patient home via private care
Currently weaning Oxygen
Plan: Discharge to home today; no services
--- NOTE | 2025-03-23 13:01 | W.DCSUMMARY ---
Discharge Summary
Discharge Data
Date of Admission: 03/20/25
Date of Discharge: 03/23/25
-
Pending Results: No
Hospital Course
84 history of hypertension, GERD, anxiety hard of hearing
Presented with abdominal discomfort radiating to the chest that had been ongoing for 7 to 10 days. Found to have elevated liver enzymes and concern for choledocholithiasis. Abdominal ultrasound demonstrating cholelithiasis with mild gallbladder
wall thickening. Following day lipase greater than 4000 and likely believed to be secondary to gallstone pancreatitis. MRCP completed without evidence of choledocholithiasis therefore surgery proceeded with acute cholecystectomy. Postoperatively
was able to tolerate diet passing gas cleared for discharge home with outpatient surgery follow-up along with PCP follow-up.
Call your surgeon if you have a fever >100.5, worsening pain or nausea with vomiting
Abdominal ultrasound
IMPRESSION:
Cholelithiasis with mild gallbladder wall thickening. Reported negative Musa's sign, however the patient has been given prior pain medications. Findings are overall considered equivocal for acute cholecystitis.
The common bile duct measures 8mm which is borderline dilated. Consider correlation with lab values and possible MRCP for possible biliary obstruction.
The pancreas appears echogenic which may related to fatty atrophy or pancreatitis. Recommend correlation with lipase.
MRCP
IMPRESSION:
Cholelithiasis and mild diffuse gallbladder wall thickening, equivocal for acute cholecystitis in the appropriate clinical context.
No biliary dilatation or choledocholithiasis.
Seen and examined the day of discharge which was 03/23/2025.
No new complaints. No acute overnight events
Tolerated surgery well. Tolerated diet well. Passing gas. Has not had a bowel movement as of yet.
Spoke with general surgery in person recommend discharge if off of oxygen
Was not requiring any additional oxygen without shortness of breath.
NAD
Scleral Anicteric
MMM
No JVD
CTABL
RRR, S1/S2
Soft, NT, ND, BS+
Warm, Dry
AAOx3
Calm
More than 30 minutes spent in discharge including
Final examination of the patient
Summarizing hospital stay
Instructions for continuing care to all relevant caregivers
Preparation of discharge records, prescriptions, and referral forms
Total time spent (in minutes): 33mins
Discharge Plan
-
Patient Disposition: Home (Routine Discharge)
Discharge Diagnosis/Procedures: Acute cholecystitis
Pancreatitis
S/p cholecystectomy
Condition: Good
Diet: As tolerated, Low Fat, Low Cholesterol, 2 Gram Sodium and No added salt
Additional Diets: Switch to a low fat diet if you have loose stools after surgery
Activity: No strenuous activity
Additional Activity: Do not lift over 20 lbs for the next 2-3 weeks
Bathing Restrictions: OK to Shower
Wound Care: Glue will flake off your incisions over the next 2 weeks. Ok to shower and rinse incisions gently with soap and water. Avoid picking or scrubbing off.
Activity Restrictions/Additional Instructions:
Presented with abdominal discomfort radiating to the chest that had been ongoing for 7 to 10 days. Found to have elevated liver enzymes and concern for choledocholithiasis. Abdominal ultrasound demonstrating cholelithiasis with mild gallbladder
wall thickening. Following day lipase greater than 4000 and likely believed to be secondary to gallstone pancreatitis. MRCP completed without evidence of choledocholithiasis therefore surgery proceeded with acute cholecystectomy. Postoperatively
was able to tolerate diet passing gas cleared for discharge home with outpatient surgery follow-up along with PCP follow-up.
Call your surgeon if you have a fever >100.5, worsening pain or nausea with vomiting
Abdominal ultrasound
IMPRESSION:
Cholelithiasis with mild gallbladder wall thickening. Reported negative Musa's sign, however the patient has been given prior pain medications. Findings are overall considered equivocal for acute cholecystitis.
The common bile duct measures 8mm which is borderline dilated. Consider correlation with lab values and possible MRCP for possible biliary obstruction.
The pancreas appears echogenic which may related to fatty atrophy or pancreatitis. Recommend correlation with lipase.
MRCP
IMPRESSION:
Cholelithiasis and mild diffuse gallbladder wall thickening, equivocal for acute cholecystitis in the appropriate clinical context.
No biliary dilatation or choledocholithiasis.
Referrals:
Kwesi Eaton MD [Active, Surgical] - in two to four weeks
UNKNOWN - PT DOES,NOT KNOW [Family Provider]
Prescriptions:
New
tramadol 50 mg Tablet
100 mg PO Q6HPRN PRN (Reason: sev pain) Qty: 24 0RF
Rx Instructions:
1 tab for moderate pain
2 tabs for severe pain
acetaminophen [Tylenol Extra Strength] 500 mg Tablet
1,000 mg PO Q6HPRN PRN (Reason: mild pain/fever>101) Qty: 13 0RF
Continued
amlodipine 5 mg Tablet
5 mg PO DAILY
ergocalciferol (vitamin D2) 1,250 mcg (50,000 unit) Capsule
1,250 mcg PO Q2W
red yeast rice 600 mg Tablet
600 mg PO DAILY
sertraline 100 mg Tablet
100 mg PO DAILY
calcium carbonate [Tums] 200 mg calcium (500 mg) Tablet,Chewable
200 mg PO BIDPRN PRN (Reason: gerd)
omeprazole 20 mg Tablet,Delayed Release (Dr/Ec)
20 mg PO DAILY
Discharge Orders:
Discharge Patient (As Directed); Ordered 03/23/25
Ordered By: Rodney Hurtado
Discharge Date and Time
Print Language: CYPRIOT
[2025-03-23] MEDS: TYLENOL 1000 MG PO (14:34)
== END 2025-03-23 15:03 | disposition home or self-care (01) | DRG 418 ==
LOC: 2 SOUTH 23:50
PROVIDERS: Clinical Nurse Specialist Family Health; Emergency Medicine; Surgery; ADMITTING PHYSICIAN Internal Medicine; ATTENDING PHYSICIAN Hospitalist; CONSULT PHYSICIAN Specialist; CONSULT PHYSICIAN Surgery; EMERGENCY PHYSICIAN Emergency Medicine
PROC: 0FT44ZZ Resection of Gallbladder, Percutaneous Endoscopic Approach (ICD-10-PCS; 2025-03-22)
DX: K85.10 Biliary acute pancreatitis without necrosis or infection (principal); K80.62 Calculus of gallbladder and bile duct with acute cholecystitis without obstruction; Z87.891 Personal history of nicotine dependence; F10.10 Alcohol abuse, uncomplicated; I10 Essential (primary) hypertension; K21.9 Gastro-esophageal reflux disease without esophagitis; Z66 Do not resuscitate; Z79.899 Other long term (current) drug therapy
CPT/HCPCS: 74183; 76700; 80053; 83690; 84484; 85025; 88304; 93005; 97162; A9575